=== PATIENT | male | born 1985 | race Caucasian/White ===

== ENCOUNTER 2022-05-31 17:22 | Emergency (ER) | payer MEDICAID ==
[~2022-05-31] VITALS: Wt 77.3 kg
[~2022-05-31 17:22] MED LIST: ATIVAN1 M1 PO; ONDANSETRON HYDR4 MG PO; PROTONIX TR40 M1 PO; REMERON15 MG PO; REMICADE V100 MG/VIA IV; SEROQUEL 2525 MG/TAB PO; SULFAZINE500 M2 PO
[2022-05-31 18:46] LABS: BASO # 0.02 K/mm3 (0.02-0.10); EOS # 0.19 K/mm3 (0.04-0.40); EOS % 1.7 % (0.0-4.0); HEMATOCRIT 39.1 % (42.0-52.0); HEMOGLOBIN 12.6 g/dL (13.5-18.0); MEAN CELL VOLUME 82 fl (78-100); MEAN CORPUSCULAR HEMOGLOBIN 26 pg (27-31); MEAN CORPUSCULAR HGB CONC 32 g/dL (33-37); MONO # 0.54 K/mm3 (0.20-0.80); NEU # 7.26 K/mm3 (1.40-6.50); PLATELET COUNT 319 K/mm3 (130-400); RED BLOOD COUNT 4.78 M/mm3 (4.20-5.60); RED CELL DISTRIBUTION WIDTH 13.9 % (11.5-14.5); WHITE BLOOD COUNT 10.9 K/mm3 (4.8-10.8)
[2022-05-31 19:05] LABS: ALBUMIN 3.9 g/dL (3.5-5.0); POTASSIUM 3.5 mmol/L (3.5-5.1)
[2022-05-31 19:06] LABS: CALCIUM 9.2 mg/dL (8.3-10.5)
[2022-05-31 19:07] LABS: TOTAL PROTEIN 7.2 g/dL (6.4-8.3)
[2022-05-31 19:09] LABS: TOTAL BILIRUBIN 0.3 mg/dL (0.2-1.2)
[2022-05-31 19:46] VITALS: BP 125/77
== END 2022-05-31 19:35 | disposition left against medical advice (07) ==
LOC: ED 17:22
PROVIDERS: Family Medicine
DX: K50.919 Crohn's disease, unspecified, with unspecified complications (principal); F17.200 Nicotine dependence, unspecified, uncomplicated; Z28.310 Unvaccinated for COVID-19

== ENCOUNTER 2022-08-22 15:12 | Emergency (ER) | payer OTHER, MEDICAID ==
[~2022-08-22 15:12] MED LIST changes: +CLONAZEPAM0.5 M1 PO; +DEPAKOTE ER 50500 MG PO; +PREDNISONE 5MG5 MG PO
[2022-08-22 15:20] VITALS: BP 150/85
[2022-08-22] MEDS ORDERED: DIVALPROEX SOD250 M1 PO (16:22)
[2022-08-22] MEDS ORDERED: CEPHALEXIN500 M1 PO (16:27)
[2022-08-22] MEDS ORDERED: BACTRIM DS TAB1 EACH PO (16:27)
== END 2022-08-22 16:35 | disposition home or self-care (01) ==
LOC: ED 15:12
DX: L02.811 Cutaneous abscess of head [any part, except face] (principal); F17.200 Nicotine dependence, unspecified, uncomplicated; Z88.1 Allergy status to other antibiotic agents; Z28.310 Unvaccinated for COVID-19